=== PATIENT | female | born 1985 | race African-American/Black ===

== ENCOUNTER 2017-12-07 17:28 | Emergency (ER) | payer BC ==
[~2017-12-07] VITALS: Ht 167.6 cm; Wt 111.1 kg
[2017-12-07] MEDS ORDERED: ACCUNEB SO1.25 MG/1 INH (17:45)
[2017-12-07] MEDS ORDERED: VENTOLIN HFA 1818 GM INH (18:35)
[2017-12-07] MEDS ORDERED: PREDNISONE 20 M20 MG PO (18:35)
[2017-12-07 18:43] VITALS: BP 119/65
== END 2017-12-07 18:43 | disposition home or self-care (01) ==
LOC: ER 17:28
DX: J45.901 Unspecified asthma with (acute) exacerbation (principal); F17.210 Nicotine dependence, cigarettes, uncomplicated; Z76.0 Encounter for issue of repeat prescription